=== PATIENT | male | born 1955 | race Caucasian/White ===

== ENCOUNTER → 2017-10-29 | Outpatient (CLI) | payer MEDICAID ==
[~2017-10-29] MED LIST: AMOX1TAB64 PO; HYDR-3237 PO; HYDR-3241 PO; OXYC10TA47 PO; RIVA10TA PO; RIVA15TA PO
== END | disposition home or self-care (01) ==
LOC: CFH 10:16
PROVIDERS: ATTEND Physician Assistant
DX: B19.20 Unspecified viral hepatitis C without hepatic coma (principal); R13.19 Other dysphagia; Z79.01 Long term (current) use of anticoagulants
CPT/HCPCS: 76700

== ENCOUNTER 2020-01-24 11:29 | Observation (INO) | payer MEDICARE, MEDICAID ==
[~2020-01-24] VITALS: Ht 185.4 cm; Wt 104.6 kg
[~2020-01-24 11:29] MED LIST changes: -RIVA10TA PO; +RIVA10TA2 PO
--- NOTE | 2020-01-24 12:01 | NUR ---
PT BIB [facility] FROM HOME. PT STATES BILAT CHEST PAIN, WORSE WITH DEEP BREATHING X1 WEEK. STATES ALL OVER BODY ACHES WELL. IV STARTED IN ER. AWAITING ERMD ASSESSMENT. PT PLACED ON MONITORS. EKG COMPLETED.
[2020-01-24] MEDS ORDERED: ASPIRIN 81 MG TABLET CHEW PO ONE (12:30)
[2020-01-24] MEDS ORDERED: ASPIRIN 81 MG TABLET CHEW ONE (12:39)
--- NOTE | 2020-01-24 12:43 | NUR ---
PT MEDICATED PER ORDERS. AWAITNG CXR AND LAB. PT REMAINS ON MONITORS, NO DISTRESS. CONT TO MONITOR.
[2020-01-24 12:45] LABS: BASOPHILS # (AUTO) 0.03 x10^3/uL (0-0.1); BASOPHILS % (AUTO) 0 % (0-1); EOSINOPHILS # (AUTO) 0.38 x10^3/uL (0-0.4); EOSINOPHILS % (AUTO) 6 % (1-7); LYMPHOCYTES # (AUTO) 1.36 x10^3/uL (1-3.4); LYMPHOCYTES % (AUTO) 20 % (22-44); MD NO; MEAN CORPUSCULAR HEMOGLOBIN 34.4 pg (27.5-34.5); MEAN CORPUSCULAR HGB CONC 32.9 g/dL (33.2-36.2); MEAN CORPUSCULAR VOLUME 104.4 fL (81-97); MEAN PLATELET VOLUME 8.3 fL (7.4-10.4); MONOCYTES % (AUTO) 12 % (2-9); NEUTROPHILS # (AUTO) 4.28 x10^3/uL (1.8-6.8); NEUTROPHILS % (AUTO) 62 % (42-75); PLATELET COUNT 208 x10^3/uL (130-400); RED BLOOD COUNT 5.52 x10^6/uL (4.38-5.82)
[2020-01-24 12:49] LABS: ALBUMIN 3.9 g/dL (3.4-5.0); ANION GAP 5 mmol/L (5-15); CALCIUM 9.5 mg/dL (8.5-10.1); CHLORIDE 104 mmol/L (98-107)
[2020-01-24 12:53] LABS: ALANINE AMINOTRANSFERASE 37 U/L (12-78); ALKALINE PHOSPHATASE 82 U/L (45-117); BILIRUBIN,TOTAL 0.8 mg/dL (0.2-1.0); CREATININE 0.97 mg/dL (0.7-1.3); TOTAL PROTEIN 8.9 g/dL (6.4-8.2); TROPONIN I < 0.015 ng/mL (0.000-0.045)
[2020-01-24] MEDS ORDERED: UMEC62.5 INH (13:15)
[2020-01-24] MEDS ORDERED: THIA100T27 PO (13:15)
[2020-01-24] MEDS ORDERED: APIX5TAB PO (13:15)
[2020-01-24] MEDS ORDERED: TOPI25TA8 PO (13:15)
[2020-01-24] MEDS ORDERED: FOLI-17 PO (13:15)
[2020-01-24] MEDS ORDERED: DULO30CA2 PO (13:15)
[2020-01-24] MEDS ORDERED: CHOL10003 PO (13:15)
[2020-01-24] MEDS ORDERED: PANT40TA5 PO (13:15)
[2020-01-24] MEDS ORDERED: LISI-170 PO (13:15)
--- NOTE | 2020-01-24 13:15 | NUR ---
BREAK RN: PT GIVEN REMOTE FOR TV, MED REC UPDATED. US AT BEDSIDE
--- NOTE | 2020-01-24 13:55 | NUR ---
PT TO IMAGING.
[2020-01-24] MEDS ORDERED: OMNIPAQUE 350 MG/ML, 100ML BOTTLE ONE (14:14)
[2020-01-24] MEDS ORDERED: ONDANSETRON 2MG/ML, 2ML IVPush PRN (15:00)
[2020-01-24] MEDS ORDERED: hydrALAzine 20 MG/ML, 1ML IVPush PRN (15:00)
[2020-01-24] MEDS ORDERED: ACETAMINOPHEN 325 MG TABLET PO PRN (15:00)
[2020-01-24] MEDS ORDERED: GABAPENTIN 300 MG CAPSULE PO PRN (15:00)
--- NOTE | 2020-01-24 15:07 | NUR ---
ADMITTING MD AT BEDSIDE FOR ASSESMENT. PT REMAINS ON MONITORS, VSS. CALL LIGHT IN EACH. PT AWARE OF POC, AWARE TO BE [facility] ADMIT. CONT TO [facility].
[2020-01-24] MEDS ORDERED: ENOXAPARIN 40 MG/0.4 ML ONE (15:29)
[2020-01-24] MEDS ORDERED: LORazepam 2 MG/ML, 1ML IV PRN ×4 (15:30)
[2020-01-24] MEDS ORDERED: NICOTINE 21 MG/24 HR PATCH.TD24 TD ONE (15:30)
[2020-01-24] MEDS: ENOXAPARIN 40 MG/0.4 ML SQ SCH (15:33)
[2020-01-24 15:38] LABS: TROPONIN I < 0.015 ng/mL (0.000-0.045)
[2020-01-24] MEDS ORDERED: NICOTINE 21 MG/24 HR PATCH.TD24 ONE (15:46)
--- NOTE | 2020-01-24 15:48 | NUR ---
REPORT GIVEN TO PASTORA SWEENEY. PT OK TO TRANSFER TO THE FLOOR.
--- NOTE | 2020-01-24 16:01 | NUR ---
PT TRANSFERED TO [facility], HAS ALL OWN BELONGINGS UPON TRANSFER.
[2020-01-24 17:48] LABS: AMPHETAMINE SCREEN, URINE Positive (Negative); BARBITURATE SCREEN, URINE Negative (Negative); BENZODIAZEPINE SCREEN, URINE Negative (Negative); CANNABINOID SCREEN, URINE Negative (Negative); COCAINE SCREEN, URINE Negative (Negative); METHADONE SCREEN, URINE Negative (Negative); OPIATE SCREEN, URINE Negative (Negative)
[2020-01-24 20:54] VITALS: BP 167/91
[2020-01-24 22:01] LABS: TROPONIN I < 0.015 ng/mL (0.000-0.045)
[2020-01-25 01:22] VITALS: BP 136/97
[2020-01-25] MEDS: LORazepam 2 MG/ML, 1ML IV PRN ×2 (03:12→15:04)
[2020-01-25 04:18] LABS: BASOPHILS # (AUTO) 0.03 x10^3/uL (0-0.1); BASOPHILS % (AUTO) 0 % (0-1); EOSINOPHILS # (AUTO) 0.49 x10^3/uL (0-0.4); EOSINOPHILS % (AUTO) 6 % (1-7); LYMPHOCYTES # (AUTO) 1.63 x10^3/uL (1-3.4); LYMPHOCYTES % (AUTO) 20 % (22-44); MD NO; MEAN CORPUSCULAR HEMOGLOBIN 34.6 pg (27.5-34.5); MEAN CORPUSCULAR HGB CONC 33.2 g/dL (33.2-36.2); MEAN CORPUSCULAR VOLUME 104.1 fL (81-97); MEAN PLATELET VOLUME 8.6 fL (7.4-10.4); MONOCYTES # (AUTO) 0.83 x10^3/uL (0.2-0.8); MONOCYTES % (AUTO) 10 % (2-9); NEUTROPHILS # (AUTO) 5.03 x10^3/uL (1.8-6.8); NEUTROPHILS % (AUTO) 63 % (42-75); PLATELET COUNT 200 x10^3/uL (130-400); RED BLOOD COUNT 5.21 x10^6/uL (4.38-5.82); RED CELL DISTRIBUTION WIDTH 15.1 % (9.4-14.8)
[2020-01-25 04:43] LABS: ANION GAP 9 mmol/L (5-15); CALCIUM 8.9 mg/dL (8.5-10.1); CHLORIDE 105 mmol/L (98-107); CREATININE 0.79 mg/dL (0.7-1.3)
[2020-01-25 07:00] VITALS: BP 114/85
[2020-01-25] MEDS: DOXYCYCLINE 100MG TABLET PO SCH ×2 (07:35→21:13)
[2020-01-25] MEDS ORDERED: MULTIVITAMINS/MINERALS TABLET PO SCH (12:00)
[2020-01-25 13:03] VITALS: BP 151/77
[2020-01-25] MEDS: ENOXAPARIN 40 MG/0.4 ML SQ SCH (15:04)
[2020-01-25] MEDS: HYDROCORTISONE CRM 0.5%, 30GM TP SCH ×2 (16:00→21:13)
[2020-01-25] MEDS: HYDROcodone/APAP 5/325 TABLET PO PRN (18:07)
[2020-01-25] MEDS ORDERED: NICOTINE 21 MG/24 HR PATCH.TD24 TD SCH (18:30)
[2020-01-25 21:34] VITALS: BP_SYST 146; BP_SYST 152; BP_DIAS 106; BP_DIAS 93
[2020-01-26 01:13] VITALS: BP 164/99
[2020-01-26] MEDS: HYDROcodone/APAP 5/325 TABLET PO PRN ×2 (01:21→09:11)
[2020-01-26] MEDS: LORazepam 2 MG/ML, 1ML IV PRN (03:21)
[2020-01-26 07:49] VITALS: BP 121/85
[2020-01-26] MEDS ORDERED: THIAMINE 100 MG in DEXTROSE 5% 50 ML IVPB SCH (09:00)
[2020-01-26] MEDS ORDERED: AMLODIPINE 5 MG TABLET PO SCH (09:00)
[2020-01-26] MEDS ORDERED: DOXY100T PO (09:07)
[2020-01-26] MEDS ORDERED: [UNRECOGNIZED DRUG - CODE] TP (09:08)
[2020-01-26] MEDS: HYDROCORTISONE CRM 0.5%, 30GM TP SCH (09:10)
[2020-01-26] MEDS: DOXYCYCLINE 100MG TABLET PO SCH (09:11)
== END 2020-01-26 11:30 | disposition home or self-care (01) ==
LOC: ED 12:47 → SUATTDRO 14:33 → INTOOBSV 15:00 → EDIP 15:00 → 5SO 16:04 → DCLOUNGE 01-26 11:21
PROVIDERS: ADMIT Hospitalist; ATTEND Hospitalist
DX: R07.89 Other chest pain (principal); L03.116 Cellulitis of left lower limb; J96.91 Respiratory failure, unspecified with hypoxia; F10.239 Alcohol dependence with withdrawal, unspecified; F15.129 Other stimulant abuse with intoxication, unspecified; F17.210 Nicotine dependence, cigarettes, uncomplicated; K21.9 Gastro-esophageal reflux disease without esophagitis; F19.10 Other psychoactive substance abuse, uncomplicated; F15.10 Other stimulant abuse, uncomplicated; Z79.899 Other long term (current) drug therapy
CPT/HCPCS: 36415; 71045; 71275; 80048; 80053; 80307; 83036; 83735; 84100; 84484; 85025; 93005; 93971; 96365; 96372; 96375; 96376; 99285; G0378; J0360; J1650; J2060; J3411; Q9967

== ENCOUNTER → 2020-02-13 | Outpatient (CLI) | payer MEDICARE, MEDICAID ==
[~2020-02-13] MED LIST changes: +APIX5TAB PO; +CHOL10003 PO; +DOXY100T PO; +DULO30CA2 PO; +FOLI-17 PO; +LISI-170 PO; +PANT40TA5 PO; +THIA100T27 PO; +TOPI25TA8 PO; +UMEC62.5 INH; +[UNRECOGNIZED DRUG - CODE] TP
== END | disposition home or self-care (01) ==
LOC: WOUND 13:00
PROVIDERS: ATTEND Internal Medicine
DX: I87.333 Chronic venous hypertension (idiopathic) with ulcer and inflammation of bilateral lower extremity (principal); L97.521 Non-pressure chronic ulcer of other part of left foot limited to breakdown of skin; L97.222 Non-pressure chronic ulcer of left calf with fat layer exposed; L97.212 Non-pressure chronic ulcer of right calf with fat layer exposed; F10.188 Alcohol abuse with other alcohol-induced disorder; F19.10 Other psychoactive substance abuse, uncomplicated; J44.9 Chronic obstructive pulmonary disease, unspecified; F15.129 Other stimulant abuse with intoxication, unspecified; K21.9 Gastro-esophageal reflux disease without esophagitis; F17.210 Nicotine dependence, cigarettes, uncomplicated; Z79.899 Other long term (current) drug therapy; Z79.01 Long term (current) use of anticoagulants
CPT/HCPCS: 97597; G0463

== ENCOUNTER 2020-02-20 14:13 | Outpatient (CLI) | payer MEDICARE, MEDICAID | END 2020-02-20 23:59 | disposition home or self-care (01) | LOC: WOUND 14:13 | PROVIDERS: ATTEND Internal Medicine | DX: I87.333 Chronic venous hypertension (idiopathic) with ulcer and inflammation of bilateral lower extremity (principal); L97.222 Non-pressure chronic ulcer of left calf with fat layer exposed; L97.212 Non-pressure chronic ulcer of right calf with fat layer exposed; F19.10 Other psychoactive substance abuse, uncomplicated; K21.9 Gastro-esophageal reflux disease without esophagitis; J44.9 Chronic obstructive pulmonary disease, unspecified; F10.188 Alcohol abuse with other alcohol-induced disorder; F15.129 Other stimulant abuse with intoxication, unspecified; F17.210 Nicotine dependence, cigarettes, uncomplicated; Z79.899 Other long term (current) drug therapy; Z79.01 Long term (current) use of anticoagulants | CPT/HCPCS: 99213; G0463 ==

== ENCOUNTER → 2020-03-05 | Outpatient (CLI) | payer MEDICARE, MEDICAID | END | disposition home or self-care (01) | LOC: CVU 12:24 | PROVIDERS: ATTEND Internal Medicine | DX: I65.23 Occlusion and stenosis of bilateral carotid arteries (principal); L97.222 Non-pressure chronic ulcer of left calf with fat layer exposed; R60.0 Localized edema; I10 Essential (primary) hypertension | CPT/HCPCS: 93922; 93925; 93970 ==